=== PATIENT | female | born 1955 | race African-American/Black ===

== ENCOUNTER 2021-08-08 10:48 | Emergency (ER) | payer OTHER ==
[~2021-08-08] VITALS: Ht 165.1 cm; Wt 94.8 kg
[2021-08-08 11:08] VITALS: BP 151/61
--- NOTE | 2021-08-08 16:34 | NUR ---
PATIENT LEFT WITHOUT BEING SEEN BY DR. LANGLEY. NO FURTHER CARE PROVIDED FOR PATIENT.
== END 2021-08-08 16:34 | disposition left against medical advice (07) ==
LOC: MED 10:48
DX: K62.5 Hemorrhage of anus and rectum (principal); Z53.21 Procedure and treatment not carried out due to patient leaving prior to being seen by health care provider